=== PATIENT | male | born 1995 | race Caucasian/White ===

== ENCOUNTER 2023-12-29 15:11 | Emergency (ER) | payer MEDICAID, OTHER ==
[~2023-12-29] VITALS: Ht 172.7 cm; Wt 85.0 kg
[2023-12-29 15:48] VITALS: O2SAT 100
[2023-12-29] MEDS ORDERED: IBUP-2029 PO (18:49)
[2023-12-29] MEDS: IBUPROFEN 600MG TABLET PO NR (19:34)
[2023-12-29] MEDS: TETANUS, DIPHTHERIA, PERTUSSIS VAC/PF 0.5ML (>10YR OLD) IM ONE (19:35)
[2023-12-29 19:41] VITALS: BP 199/77; PULSE 54; RESP 16; TEMP 98.8
== END 2023-12-29 19:45 | disposition home or self-care (01) ==
LOC: ER 15:11
DX: S91.332A Puncture wound without foreign body, left foot, initial encounter (principal); W22.8XXA Striking against or struck by other objects, initial encounter; Y93.89 Activity, other specified; Y92.89 Other specified places as the place of occurrence of the external cause; Y99.8 Other external cause status
CPT/HCPCS: 73630; 90715; 96374; 99283